=== PATIENT | female | born 1965 | race American Indian/Alaskan Native ===

== ENCOUNTER 2020-01-02 11:29 | Emergency (ER) | payer SELFPAY ==
--- NOTE | 2020-01-02 11:41 | Emergency Department Report ---
Blank Doc - Documentation Documentation: 54-year-old female that presents with abdominal pain with n/v. This initial assessment/diagnostic orders/clinical plan/treatment(s) is/are subject to change based on patient's health status, clinical progression and re- assessment by fellow clinical providers in the ED. Further treatment and workup at subsequent clinical providers discretion. Patient/guardians urged not to elope from the ED as their condition may be serious if not clinically assessed and managed. Initial orders include: 1- Patient sent to [facility] for further evaluation and treatment 2- labs 3- UA
[2020-01-02] MEDS ORDERED: MORPHINE 2 MG/1 ML INJ IV ONE (12:23)
[2020-01-02] MEDS ORDERED: ONDANSETRON 4 MG/2 ML INJ IV ONE (12:23)
[2020-01-02] MEDS ORDERED: PANTOPRAZOLE 40 MG INJ IV ONE (12:24)
[2020-01-02] MEDS ORDERED: ONDANSETRON 4 MG ODT TAB PO ONE (12:25)
--- NOTE | 2020-01-02 12:27 | XRay Report ---
XR abd series w cxr 1V INDICATION / CLINICAL INFORMATION: Abdominal pain. COMPARISON: None available. FINDINGS: TUBES / LINES: None. BOWEL GAS PATTERN: No significant abnormality. FREE AIR / EXTRALUMINAL GAS: None seen. LUNGS: Visualized lungs show no significant abnormality. HEART / MEDIASTINUM: No significant abnormality. IMPRESSION: 1. No acute abnormality. Signer Name: Kendall Power MD Signed: 01/02/2020 12:23 PM Workstation Name: [id number]
--- NOTE | 2020-01-02 12:31 | Emergency Department Report ---
ED Abdominal Pain HPI - General Chief Complaint: Abdominal Pain Stated Complaint: ABD PAIN/HYEGLYCMIA Time Seen by Provider: 01/02/20 11:40 Source: patient Mode of arrival: Stretcher Limitations: No Limitations - History of Present Illness Initial Comments: 54 yo F w/ hx of gastritis, chronic abdominal pain, presents to ED with abdominal pain x 1 week. She reports associated nausea and vomiting. Denies fever, diarrhea, constipation. Pt visiting from [place]. Has CT report with her from November [address] Abd/Pelvis. Patient reports last upper endoscopy showed gastritis. MD Complaint: abdominal pain -: week(s) (1) Location: diffuse Radiation: none Migration to: no migration Severity: moderate Quality: cramping, aching Consistency: constant Improves With: nothing Worsens With: nothing Associated Symptoms: nausea, vomiting. denies: diarrhea, fever, dysuria - Related Data Previous Rx's Medication Instructions Recorded Last Taken Type Dicyclomine [Bentyl] 20 mg PO QID PRN #20 tablet 01/02/20 Unknown Rx Nitrofurantoin [place]/M-Cryst 100 mg PO Q12HR #14 capsule 01/02/20 Unknown Rx [Macrobid CAP] Ondansetron [Zofran Odt] 4 mg PO Q8HR PRN #20 tab.rapdis 01/02/20 Unknown Rx traMADoL [Ultram] 50 mg PO Q6HR PRN #7 tablet 01/02/20 Unknown Rx Allergies Allergy/AdvReac Type Severity Reaction Status Date / Time No Known Allergies Allergy Unverified 01/02/20 11:33 ED Review of Systems ROS: Stated complaint: ABD PAIN/HYEGLYCMIA Other details as noted in HPI Comment: All other systems reviewed and negative Constitutional: denies: chills, fever Gastrointestinal: abdominal pain, nausea, vomiting. denies: diarrhea Genitourinary: denies: dysuria ED Past Medical Hx - Past Medical History Previous Medical History?: Yes Hx Hypertension: Yes Hx Diabetes: Yes - Social History Smoking Status: Never Smoker Substance Use Type: None - Medications Home Medications: Home Medications Medication Instructions Recorded Confirmed Last Taken Type Dicyclomine [Bentyl] 20 mg PO QID PRN #20 tablet 01/02/20 Unknown Rx Nitrofurantoin [place]/M-Cryst 100 mg PO Q12HR #14 capsule 01/02/20 Unknown Rx [Macrobid CAP] Ondansetron [Zofran Odt] 4 mg PO Q8HR PRN #20 tab.rapdis 01/02/20 Unknown Rx traMADoL [Ultram] 50 mg PO Q6HR PRN #7 tablet 01/02/20 Unknown Rx ED Physical Exam - General Limitations: No Limitations General appearance: alert, other (appears uncomfortable) - Head Head exam: Present: atraumatic, normocephalic - Eye Eye exam: Present: normal appearance, EOMI - ENT ENT exam: Present: mucous membranes moist - Neck Neck exam: Present: normal inspection - Respiratory Respiratory exam: Present: normal lung sounds bilaterally. Absent: respiratory distress - Cardiovascular Cardiovascular Exam: Present: normal rhythm, tachycardia - GI/Abdominal GI/Abdominal exam: Present: soft, tenderness (mild diffuse tenderness). Absent: distended - Extremities Exam Extremities exam: Present: normal inspection - Neurological Exam Neurological exam: Present: alert, oriented X3 - Psychiatric Psychiatric exam: Present: normal affect, normal mood - Skin Skin exam: Present: warm, dry, intact, normal color ED Course Vital Signs 01/02/20 01/02/20 01/02/20 11:41 12:28 12:31 Temperature 98.2 F Pulse Rate 110 H Respiratory 24 Rate Blood Pressure 120/71 O2 Sat by Pulse 98 98 96 Oximetry 01/02/20 01/02/20 01/02/20 12:39 12:45 13:01 Temperature Pulse Rate Respiratory 18 18 Rate Blood Pressure O2 Sat by Pulse 100 97 Oximetry 01/02/20 01/02/20 01/02/20 13:09 13:15 13:31 Temperature Pulse Rate Respiratory 18 Rate Blood Pressure O2 Sat by Pulse 96 100 Oximetry 01/02/20 01/02/20 01/02/20 13:45 14:01 14:15 Temperature Pulse Rate Respiratory Rate Blood Pressure O2 Sat by Pulse 100 98 98 Oximetry 01/02/20 14:31 Temperature Pulse Rate Respiratory Rate Blood Pressure 169/55 O2 Sat by Pulse 99 Oximetry ED Medical Decision Making - Lab Data Result diagrams: 01/02/20 14:45 01/02/20 14:45 - Radiology Data Radiology results: report reviewed, image reviewed - Medical Decision Making - acute on chronic abdominal pain - pt afebrile, labs unremarkable - no emesis here in ED - abd series normal - UA appears to be contaminated sample, but rx given for UTI - pt feels much better following morphine, zofran, protonix - outpt f/u advised - return precautions given - Differential Diagnosis chronic abd pain, uti, bowel obstruction Critical care attestation.: If time is entered above; I have spent that time in minutes in the direct care of this critically ill patient, excluding procedure time. ED Disposition Clinical Impression: Abdominal pain, UTI (urinary tract infection) Disposition: TO HOME OR SELFCARE Is pt being admited?: No Condition: Stable Instructions: Abdominal Pain (ED), Urinary Tract Infection in Women (ED) Prescriptions: Dicyclomine [Bentyl] 20 mg PO QID PRN #20 tablet PRN Reason: abdominal pain Nitrofurantoin [place]/M-Cryst [Macrobid CAP] 100 mg PO Q12HR #14 capsule traMADoL [Ultram] 50 mg PO Q6HR PRN #7 tablet PRN Reason: Pain Ondansetron [Zofran Odt] 4 mg PO Q8HR PRN #20 tab.rapdis PRN Reason: Vomiting Referrals: KRISTEN WOOD MD [Primary Care Provider] - 3-5 Days [facility] [Provider Group] - 3-5 Days Time of Disposition: 15:55
[2020-01-02 14:35] LABS: Bacteria,Urine 2+ /HPF (Negative); Bilirubin,Urine NEG (Negative); Blood,Urine SM (Negative); Color,Urine Yellow (Yellow); Urobilinogen,Urine < 2.0 mg/dL (<2.0)
[2020-01-02 14:36] LABS: WBC,Urine > 182.0 /HPF (0.0-6.0)
[2020-01-02 15:10] LABS: Basophils # (Auto) 0.1 K/mm3 (0.0-0.1); Basophils % (Auto) 1.3 % (0.0-1.8); Eosinophils # (Auto) 0.1 K/mm3 (0.0-0.4); Eosinophils % (Auto) 1.3 % (0.0-4.3); Hematocrit 36.9 % (30.3-42.9); Hemoglobin 12.3 gm/dl (10.1-14.3); Lymphocytes # (Auto) 1.6 K/mm3 (1.2-5.4); Lymphocytes % (Auto) 29.8 % (13.4-35.0); Mean Corpuscular HGB Conc 33 % (30-34); Mean Corpuscular Volume 87 fl (79-97); Monocytes # (Auto) 0.4 K/mm3 (0.0-0.8); Monocytes % (Auto) 7.7 % (0.0-7.3); Platelet Count 277 K/mm3 (140-440); Red Blood Count 4.24 M/mm3 (3.65-5.03); Red Cell Distribution Width 14.5 % (13.2-15.2)
[2020-01-02 15:31] LABS: Alanine Aminotransferase 8 units/L (7-56); BUN/Creatinine Ratio 16; Blood Urea Nitrogen 14 mg/dL (7-17); Calcium 9.9 mg/dL (8.4-10.2); Hemolysis Index 8
[2020-01-02 16:59] VITALS: BP 196/80
== END 2020-01-02 16:30 | disposition home or self-care (01) ==
LOC: ED 11:29
DX: N39.0 Urinary tract infection, site not specified (principal); R10.84 Generalized abdominal pain; I10 Essential (primary) hypertension; E11.9 Type 2 diabetes mellitus without complications; Z79.899 Other long term (current) drug therapy
CPT/HCPCS: 36415; 74022; 80053; 81001; 82962; 83690; 85025; 96374; 96375; 99284; C9113; J2270; Q0162

== ENCOUNTER 2020-01-22 15:14 | Emergency (ER) | payer SELFPAY ==
[2020-01-22 15:42] LABS: Basophils # (Auto) 0.1 K/mm3 (0.0-0.1); Basophils % (Auto) 0.9 % (0.0-1.8); Eosinophils # (Auto) 0.1 K/mm3 (0.0-0.4); Eosinophils % (Auto) 1.6 % (0.0-4.3); Hematocrit 36.7 % (30.3-42.9); Hemoglobin 12.4 gm/dl (10.1-14.3); Lymphocytes # (Auto) 1.4 K/mm3 (1.2-5.4); Lymphocytes % (Auto) 25.4 % (13.4-35.0); Mean Corpuscular HGB Conc 34 % (30-34); Mean Corpuscular Volume 86 fl (79-97); Monocytes # (Auto) 0.4 K/mm3 (0.0-0.8); Platelet Count 306 K/mm3 (140-440); Red Blood Count 4.25 M/mm3 (3.65-5.03); Red Cell Distribution Width 14.3 % (13.2-15.2)
[2020-01-22 16:02] LABS: Alanine Aminotransferase 9 units/L (7-56); Albumin 4.1 g/dL (3.9-5); BUN/Creatinine Ratio 28; Blood Urea Nitrogen 22 mg/dL (7-17); Calcium 10.2 mg/dL (8.4-10.2); Hemolysis Index 11
[2020-01-22] MEDS ORDERED: fentaNYL 100 MCG/2 ML INJ IV ONE (16:15)
[2020-01-22] MEDS ORDERED: METOCLOPRAMIDE 10 MG/2 ML INJ IV ONE (16:16)
[2020-01-22] MEDS ORDERED: diphenhydrAMINE 50 MG/ML VIAL IV ONE (16:16)
[2020-01-22] MEDS ORDERED: METOCLOPRAMIDE 10 MG/2 ML INJ ONE (16:18)
[2020-01-22] MEDS ORDERED: diphenhydrAMINE 50 MG/ML VIAL ONE (16:18)
[2020-01-22] MEDS ORDERED: SODIUM CHLORIDE 0.9% 1000 ML 1,000 ML IV ONE ×2 (16:20→19:49)
--- NOTE | 2020-01-22 16:26 | Emergency Department Report ---
HPI - General Chief Complaint: Abdominal Pain Time Seen by Provider: 01/22/20 16:11 - HPI HPI: Room 4 The patient is a 55-year-old female present with a chief complaint of abdominal pain. The patient states she has been suffering from intermittent abdominal pain since 1996 but has not yet been given a diagnosis. Patient states she has had extensive work-up including EGD which have not revealed results. Patient is uncertain if she has been told she may have gastroparesis. The patient states her most recent episode began 2 days ago with a constant pain in the midepigastric region associated with nausea and vomiting. Patient is unable to describe the quality of her pain and states it does not radiate. Patient denies diarrhea. The patient states her last bowel movement occurred this morning and was hard. Patient denies history of fever or cough. Patient denies any known sick contacts. The patient gives her pain a score of 10/10 ED Past Medical Hx - Past Medical History Previous Medical History?: Yes Hx Hypertension: Yes Hx Diabetes: Yes - Surgical History Past Surgical History?: No - Family History Family history: no significant - Social History Smoking Status: Never Smoker Substance Use Type: None (Denies illicit drug use) - Medications Home Medications: Home Medications Medication Instructions Recorded Confirmed Last Taken Type Dicyclomine [Bentyl] 20 mg PO QID PRN #20 tablet 01/02/20 Unknown Rx Nitrofurantoin [place]/M-Cryst 100 mg PO Q12HR #14 capsule 01/02/20 Unknown Rx [Macrobid CAP] Ondansetron [Zofran Odt] 4 mg PO Q8HR PRN #20 tab.rapdis 01/02/20 Unknown Rx traMADoL [Ultram] 50 mg PO Q6HR PRN #7 tablet 01/02/20 Unknown Rx HYDROcodone/APAP 5-325 [[place] 1 each PO Q6HR PRN #10 tablet 01/22/20 Unknown Rx 5/325] Metoclopramide [Reglan] 10 mg PO QID #30 tab 01/22/20 Unknown Rx ED Review of Systems ROS: Stated complaint: STOMACH PAIN Other details as noted in HPI Constitutional: denies: fever Eyes: denies: eye pain ENT: denies: throat pain Respiratory: no symptoms reported Cardiovascular: denies: chest pain Endocrine: no symptoms reported Gastrointestinal: abdominal pain, nausea, vomiting. denies: diarrhea Genitourinary: denies: dysuria Musculoskeletal: denies: back pain Neurological: denies: headache Physical Exam - Physical Exam Vital Signs: Vital Signs 01/22/20 01/22/20 01/22/20 15:17 15:36 15:45 Temperature 98.6 F Pulse Rate 109 H 107 H Respiratory 20 19 Rate Blood Pressure 179/84 O2 Sat by Pulse 100 100 100 Oximetry 01/22/20 16:01 Temperature Pulse Rate 113 H Respiratory 22 Rate Blood Pressure 134/114 O2 Sat by Pulse 99 Oximetry Physical Exam: GENERAL: The patient is well-developed well-nourished female lying on stretcher appearing to be in moderate discomfort. [] HEENT: Normocephalic. Atraumatic. Extraocular motions are intact. NECK: Supple. No meningitic signs are noted. Right EJ IV in place CHEST/LUNGS: Clear to auscultation. There is no respiratory distress noted. HEART/CARDIOVASCULAR: Regular. There is no tachycardia. There is no gallop rub or murmur. ABDOMEN: Abdomen is soft, nontender. Patient has normal bowel sounds. There is no abdominal distention. Patient is abdomen is nontender but she points to the epigastric region as a source of her pain SKIN: There is no rash. There is no edema. There is no diaphoresis. NEURO: The patient is awake, alert, and oriented. The patient is cooperative. The patient has normal speech MUSCULOSKELETAL: There is no evidence of acute injury. ED Course Vital Signs 01/22/20 01/22/20 01/22/20 15:17 15:36 15:45 Temperature 98.6 F Pulse Rate 109 H 107 H Respiratory 20 19 Rate Blood Pressure 179/84 O2 Sat by Pulse 100 100 100 Oximetry 01/22/20 16:01 Temperature Pulse Rate 113 H Respiratory 22 Rate Blood Pressure 134/114 O2 Sat by Pulse 99 Oximetry ED Medical Decision Making - Lab Data Result diagrams: 01/22/20 15:28 01/22/20 15:28 Laboratory Tests 01/22/20 01/22/20 01/22/20 15:28 15:28 15:28 WBC 5.5 RBC 4.25 Hgb 12.4 Hct 36.7 MCV 86 MCH 29 MCHC 34 RDW 14.3 Plt Count 306 Lymph % (Auto) 25.4 [place] % (Auto) 7.0 Eos % (Auto) 1.6 Baso % (Auto) 0.9 Lymph # 1.4 [place] # 0.4 Eos # 0.1 Baso # 0.1 Seg Neutrophils % 65.1 Seg Neutrophils # 3.6 Sodium 137 Potassium 4.6 Chloride 97.5 L Carbon Dioxide 22 Anion Gap 22 BUN 22 H Creatinine 0.8 Estimated GFR > 60 BUN/Creatinine Ratio 28 Glucose 189 H Calcium 10.2 Total Bilirubin 0.30 AST 18 ALT 9 Alkaline Phosphatase 117 Total Creatine Kinase 148 H CK-MB (CK-2) 2.4 CK-MB (CK-2) Rel Index 1.6 Troponin T < 0.010 Total Protein 8.3 H Albumin 4.1 Albumin/Globulin Ratio 1.0 Lipase 24 - EKG Data -: EKG Interpreted by Fl EKG shows normal: sinus rhythm Rate: tachycardia (102 bpm) - EKG Data When compared to previous EKG there are: previous EKG unavailable Interpretation: other (No ischemic changes seen) - Radiology Data Radiology results: report reviewed (CT abdomen pelvis), image reviewed (CT abdomen pelvis) [place] [address] Cat Scan Report Signed Patient: DOM GAMEZ MR#: [id number] : 1965 Acct:[id number] Age/Sex: 55 / F ADM Date: 01/22/20 Loc: ED Attending Dr: Ordering Physician: MARISELA CHAPARRO MD Date of Service: 01/22/20 Procedure(s): CT abdomen pelvis w con Accession Number(s): [id number] cc: MARISELA CHAPARRO MD CT ABDOMEN AND PELVIS WITH IV CONTRAST INDICATION: Epigastric pain for 4 days TECHNIQUE: Following the administration of intravenous contrast, multiple axial CT images of the abdomen and pelvis were acquired. Sagittal and coronal reformats were obtained. All CT performed at this facility utilize dose reduction techniques including automated exposure control, iterative reconstruction and weight based dosing when appropriate to reduce patient radiation dose to as low as reasonably achievable. COMPARISON: None FINDINGS: Limited imaging of the bilateral lung bases demonstrates no evidence of acute abnormality. Abdomen: The liver, spleen, pancreas, bilateral adrenal glands and bilateral kidneys show no evidence of acute abnormality there is marked atherosclerotic vascular calcification of the proximal mesenteric vessels. There is no evidence of bowel obstruction or free fluid. The appendix is visualized and appears normal. Pelvis: No free fluid is seen within the pelvis. The urinary bladder appears normal. There is dense atherosclerotic calcification of the internal and external iliac vessels. Bones and Soft Tissues: Evaluation of bony structures demonstrates mild multilevel degenerative change of the thoracolumbar spine. Evaluation of soft tissue structures demonstrates soft tissue stranding within both flank soft tissues that may be from previous medication injection. IMPRESSION: 1. No CT evidence of acute inflammatory or obstructive process within the abdomen or pelvis. 2. Dense atherosclerotic calcification of the abdominopelvic vasculature. Signer Name: Maile Edmonds MD Signed: 01/22/2020 6:59 PM Workstation Name: [id number] Transcribed By: EB Dictated By: Maile Edmonds MD Electronically Authenticated By: Maile Edmonds MD Signed Date/Time: 01/22/201858 DD/ 50 TD/TT: - Differential Diagnosis Gastroparesis, pancreatitis, peptic ulcer disease, gastritis, PSBO Critical care attestation.: If time is entered above; I have spent that time in minutes in the direct care of this critically ill patient, excluding procedure time. ED Disposition Clinical Impression: Acute abdominal pain Disposition: DC-01 TO HOME OR SELFCARE Is pt being admited?: No Does the pt Need Aspirin: No Condition: Stable Instructions: Abdominal Pain (ED) Additional Instructions: Return to the emergency department should you develop worsening symptoms, inability to tolerate food or liquids, high fever or any other concerns Prescriptions: HYDROcodone/APAP 5-325 [[place] 5/325] 1 each PO Q6HR PRN #10 tablet PRN Reason: Pain Metoclopramide [Reglan] 10 mg PO QID #30 tab Referrals: PRIMARY MD LAWRENCE [Primary Care Provider] - 3-5 Days HANNAH JACOME MD [Staff Physician] - 3-5 Days (Dr. Jacome is a gastroen terologist. Please follow-up with him for further evaluation)
[2020-01-22 16:46] LABS: Creatine Kinase MB 2.4 ng/mL (0.0-4.0)
[2020-01-22] MEDS ORDERED: ONDANSETRON 4 MG/2 ML INJ IV ONE (18:00)
--- NOTE | 2020-01-22 19:03 | Cat Scan Report ---
CT ABDOMEN AND PELVIS WITH IV CONTRAST INDICATION: Epigastric pain for 4 days TECHNIQUE: Following the administration of intravenous contrast, multiple axial CT images of the abdo men and pelvis were acquired. Sagittal and coronal reformats were obtained. All CT performed at this facility utilize dose reduction techniques including automated exposure control, iterative reconstru ction and weight based dosing when appropriate to reduce patient radiation dose to as low as reasonab ly achievable. COMPARISON: None FINDINGS: Limited imaging of the bilateral lung bases demonstrates no evidence of acute abnormality. Abdomen: The liver, spleen, pancreas, bilateral adrenal glands and bilateral kidneys show no evidence of acute abnormality there is marked atherosclerotic vascular calcification of the proximal mesenter ic vessels. There is no evidence of bowel obstruction or free fluid. The appendix is visualized and a ppears normal. Pelvis: No free fluid is seen within the pelvis. The urinary bladder appears normal. There is dense a therosclerotic calcification of the internal and external iliac vessels. Bones and Soft Tissues: Evaluation of bony structures demonstrates mild multilevel degenerative ferguson e of the thoracolumbar spine. Evaluation of soft tissue structures demonstrates soft tissue stranding within both flank soft tissues that may be from previous medication injection. IMPRESSION: 1. No CT evidence of acute inflammatory or obstructive process within the abdomen or pelvis. 2. Dense atherosclerotic calcification of the abdominopelvic vasculature. Signer Name: Maile Edmonds MD Signed: 01/22/2020 6:59 PM Workstation Name: [id number]
[2020-01-22] MEDS ORDERED: PROMETHAZINE 25 MG TAB PO ONE (20:06)
[2020-01-22 20:15] LABS: Bacteria,Urine 1+ /HPF (Negative); Bilirubin,Urine NEG (Negative); Blood,Urine SM (Negative); Color,Urine Yellow (Yellow); Mucus,Urine FEW /HPF; Urobilinogen,Urine < 2.0 mg/dL (<2.0)
[2020-01-22 21:59] VITALS: BP 169/89
== END 2020-01-22 21:58 | disposition home or self-care (01) ==
LOC: ED 15:14
DX: R10.9 Unspecified abdominal pain (principal); I10 Essential (primary) hypertension; E11.9 Type 2 diabetes mellitus without complications; Z79.899 Other long term (current) drug therapy
CPT/HCPCS: 36415; 74177; 80053; 81001; 82550; 82553; 83690; 84484; 85025; 93005; 93010; 96361; 96374; 96375; 99284; J1200; J2405; J2765; J3010; J7030; Q0169; Q9967

== ENCOUNTER 2020-01-31 17:43 | Emergency (ER) | payer SELFPAY ==
[2020-01-31 18:03] VITALS: BP 153/64
--- NOTE | 2020-01-31 18:54 | Event Note ---
ED Screening Note ED Screening Note: to er with stomach pain- diffuse difficulty urinating "I have to push." No fever or chills. It "smells funny down there" PMH HTN DM Rx chris for bp insulin pcp ? name did not see GI MD with referral given prior This initial assessment/diagnostic orders/clinical plan/treatment(s) is/are subject to change based on patients health status, clinical progression and re- assessment by fellow clinical providers in the ED. Further treatment and workup at subsequent clinical providers discretion. Patient/guardian urged not to elope from the ED as their condition may be serious if not clinically assessed and managed. Initial orders include: ua ro uti basic labs given DM and higher risk for complications from simple UTI reeval in [facility]
[2020-01-31] MEDS ORDERED: LIDOCAINE VISCOUS 2% 15 ML ORAL LIQD PO ONE (18:56)
[2020-01-31] MEDS ORDERED: FAMOTIDINE 20 MG TAB PO ONE (18:56)
[2020-01-31] MEDS ORDERED: ALUM-MAG HYDROXIDE-SIMETHICONE 200-200-20MG/5ML ORAL LIQD 30 ML PO ONE (18:56)
[2020-01-31 19:23] LABS: Basophils # (Auto) 0.1 K/mm3 (0.0-0.1); Eosinophils # (Auto) 0.1 K/mm3 (0.0-0.4); Eosinophils % (Auto) 2.6 % (0.0-4.3); Hematocrit 35.8 % (30.3-42.9); Hemoglobin 11.7 gm/dl (10.1-14.3); Lymphocytes # (Auto) 1.9 K/mm3 (1.2-5.4); Lymphocytes % (Auto) 35.1 % (13.4-35.0); Mean Corpuscular HGB Conc 33 % (30-34); Mean Corpuscular Volume 89 fl (79-97); Monocytes # (Auto) 0.5 K/mm3 (0.0-0.8); Monocytes % (Auto) 8.5 % (0.0-7.3); Platelet Count 268 K/mm3 (140-440); Red Blood Count 4.04 M/mm3 (3.65-5.03); Red Cell Distribution Width 14.6 % (13.2-15.2)
[2020-01-31 19:43] LABS: BUN/Creatinine Ratio 25; Blood Urea Nitrogen 20 mg/dL (7-17); Calcium 9.7 mg/dL (8.4-10.2); Hemolysis Index 12
[2020-01-31] MEDS ORDERED: SODIUM CHLORIDE 0.9% 1000 ML 1,000 ML IV ONE (19:48)
--- NOTE | 2020-01-31 20:39 | XRay Report ---
ABDOMEN 1 VIEW(S) INDICATION / CLINICAL INFORMATION: Abdominal pain and constipation. COMPARISON: 01/02/20. FINDINGS: TUBES / LINES: None. BOWEL GAS PATTERN: There is a moderate amount of stool throughout the colon. I see no evidence of bow el obstruction or mass effect. FREE AIR / EXTRALUMINAL GAS: None seen. ADDITIONAL FINDINGS: Atherosclerotic calcifications are noted. There is mild to moderate lower lumbar spondylosis. IMPRESSION: No acute abnormality. Signer Name: Frantz Patterson MD Signed: 01/31/2020 8:35 PM Workstation Name: [email or web address]
[2020-01-31 20:47] LABS: Bacteria,Urine 4+ /HPF (Negative); Bilirubin,Urine NEG (Negative); Blood,Urine SM (Negative); Color,Urine Yellow (Yellow); Mucus,Urine 1+ /HPF; Urobilinogen,Urine < 2.0 mg/dL (<2.0)
--- NOTE | 2020-01-31 20:48 | Emergency Department Report ---
ED Abdominal Pain HPI - General Chief Complaint: Abdominal Pain Stated Complaint: PAIN IN CHEST Time Seen by Provider: 01/31/20 19:41 Source: patient Mode of arrival: Wheelchair Limitations: No Limitations - History of Present Illness Initial Comments: Ms. Hart is a 55-year-old female with hx of chronic abdominal pain, DMII, HTN, Bilat LE amputee, who presents for complaint of abdominal pain. 5/10 aching exacerbated by nothing, relived by nothing, she denies n/v. Pt does endorse intermittent abdominal pain since 1996. Patient states she has had extensive work-up including EGD which have not revealed results. The patient states her most recent episode began 2 days ago with constipation. Last bm yesterday described as small rabbit pellets. Patient denies diarrhea. Patient denies fever or cough. Patient denies any known sick contacts. MD Complaint: abdominal pain Onset/Timin -: days(s) Location: LLQ, RLQ Radiation: LLQ Migration to: LLQ Severity: moderate Severity scale (0 -10): 4 Quality: cramping, aching Consistency: constant Improves With: nothing Worsens With: nothing Associated Symptoms: constipation. denies: nausea, vomiting, diarrhea, fever, chills, dysuria, hematemesis, hematochezia, melena, anorexia, syncope - Related Data LMP (females 10-50): other (s/p hanna) Previous Rx's Medication Instructions Recorded Last Taken Type Dicyclomine [Bentyl] 20 mg PO QID PRN #20 tablet 01/02/20 Unknown Rx Nitrofurantoin [place]/M-Cryst 100 mg PO Q12HR #14 capsule 01/02/20 Unknown Rx [Macrobid CAP] Ondansetron [Zofran Odt] 4 mg PO Q8HR PRN #20 tab.rapdis 01/02/20 Unknown Rx traMADoL [Ultram] 50 mg PO Q6HR PRN #7 tablet 01/02/20 Unknown Rx HYDROcodone/APAP 5-325 [[place] 1 each PO Q6HR PRN #10 tablet 01/22/20 Unknown Rx 5/325] Metoclopramide [Reglan] 10 mg PO QID #30 tab 01/22/20 Unknown Rx Nitrofurantoin [place]/M-Cryst 100 mg PO BID 7 Days #14 capsule 01/31/20 Unknown Rx [Macrobid CAP] bisacodyL [Dulcolax suppos] 10 mg OR QDAY PRN #5 supp.rect 01/31/20 Unknown Rx polyethylene glycoL 3350 [Miralax 17 gm PO BID PRN #14 packet 01/31/20 Unknown Rx 3350] Allergies Allergy/AdvReac Type Severity Reaction Status Date / Time No Known Allergies Allergy Unverified 01/02/20 11:33 ED Review of Systems ROS: Stated complaint: PAIN IN CHEST Other details as noted in HPI Constitutional: denies: chills, fever Eyes: denies: eye pain, eye discharge, vision change ENT: denies: ear pain, throat pain Respiratory: denies: cough, shortness of breath, wheezing Cardiovascular: denies: chest pain, palpitations Endocrine: no symptoms reported Gastrointestinal: abdominal pain, constipation. denies: nausea, vomiting, diarrhea, melena Genitourinary: frequency. denies: urgency, dysuria, hematuria, discharge Musculoskeletal: denies: back pain, joint swelling, arthralgia Skin: denies: rash, lesions Neurological: denies: headache, weakness, paresthesias, vertigo Psychiatric: anxiety. denies: depression Hematological/Lymphatic: denies: easy bleeding, easy bruising ED Past Medical Hx - Past Medical History Previous Medical History?: Yes Hx Hypertension: Yes Hx Diabetes: Yes - Surgical History Past Surgical History?: Yes Additional Surgical History: Bilatteral BKA. Hysterectomy - Social History Smoking Status: Never Smoker - Medications Home Medications: Home Medications Medication Instructions Recorded Confirmed Last Taken Type Dicyclomine [Bentyl] 20 mg PO QID PRN #20 tablet 01/02/20 Unknown Rx Nitrofurantoin [place]/M-Cryst 100 mg PO Q12HR #14 capsule 01/02/20 Unknown Rx [Macrobid CAP] Ondansetron [Zofran Odt] 4 mg PO Q8HR PRN #20 tab.rapdis 01/02/20 Unknown Rx traMADoL [Ultram] 50 mg PO Q6HR PRN #7 tablet 01/02/20 Unknown Rx HYDROcodone/APAP 5-325 [[place] 1 each PO Q6HR PRN #10 tablet 01/22/20 Unknown Rx 5/325] Metoclopramide [Reglan] 10 mg PO QID #30 tab 01/22/20 Unknown Rx Nitrofurantoin [place]/M-Cryst 100 mg PO BID 7 Days #14 capsule 01/31/20 Unknown Rx [Macrobid CAP] bisacodyL [Dulcolax suppos] 10 mg OR QDAY PRN #5 supp.rect 01/31/20 Unknown Rx polyethylene glycoL 3350 [Miralax 17 gm PO BID PRN #14 packet 01/31/20 Unknown Rx 3350] ED Physical Exam - General Limitations: No Limitations General appearance: alert, in no apparent distress - Head Head exam: Present: atraumatic, normocephalic - Eye Eye exam: Present: normal appearance, PERRL, EOMI Pupils: Present: normal accommodation - ENT ENT exam: Present: mucous membranes moist - Neck Neck exam: Present: normal inspection, full ROM. Absent: tenderness - Respiratory Respiratory exam: Present: normal lung sounds bilaterally. Absent: respiratory distress, wheezes, stridor, chest wall tenderness - Cardiovascular Cardiovascular Exam: Present: regular rate, normal rhythm, normal heart sounds. Absent: systolic murmur, diastolic murmur, rubs, gallop - GI/Abdominal GI/Abdominal exam: Present: tenderness (LLQ), normal bowel sounds. Absent: soft, distended, guarding, rebound, rigid, mass, bruit, hernia - Rectal Rectal exam: Present: deferred - Extremities Exam Extremities exam: Present: normal inspection, full ROM. Absent: tenderness - Back Exam Back exam: Present: normal inspection, full ROM. Absent: tenderness, CVA tenderness (R), CVA tenderness (L), paraspinal tenderness, vertebral tenderness - Neurological Exam Neurological exam: Present: alert, oriented X3, CN II-XII intact, reflexes normal - Psychiatric Psychiatric exam: Present: normal affect, normal mood - Skin Skin exam: Present: warm, dry, intact, normal color. 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 COMPARISON: 01/02/20. FINDINGS: TUBES / LINES: None. BOWEL GAS PATTERN: There is a moderate amount of stool throughout the colon. I see no evidence of bowel obstruction or mass effect. FREE AIR / EXTRALUMINAL GAS: None seen. ADDITIONAL FINDINGS: Atherosclerotic calcifications are noted. There is mild to moderate lower lumbar spondylosis. IMPRESSION: No acute abnormality. Signer Name: Frantz Patterson MD Signed: 01/31/2020 7:35 PM Workstation Name: [email or web address] - Medical Decision Making this is Constipation, UTI, ct abd dated 01/26/2020 - normal findings, no renal stones, no heaptic stones, no obstruction, KUB today no obstruction, moderate stoo throughout, pt previously tx'd with macrobid for uti, urine today: moderate luek, wbc, plan tx with rocephin 1gm IM, x 1 , diflucan po, dc to home with rx for miralax po and duclolax supp. pt will hydrate to 1 gallon water p er day for nexct 3-4 days, take medications as prescribed including DMII medications , pt verbalized agreement and understanding of discharge plan. Critical care attestation.: If time is entered above; I have spent that time in minutes in the direct care of this critically ill patient, excluding procedure time. ED Disposition Clinical Impression: Constipation Qualifiers: Constipation type: unspecified constipation type Qualified Code(s): K59.00 - Constipation, unspecified UTI (urinary tract infection) Qualifiers: Urinary tract infection type: acute cystitis Hematuria presence: without hematuria Qualified Code(s): N30.00 - Acute cystitis without hematuria Disposition: DC-01 TO HOME OR SELFCARE Is pt being admited?: No Does the pt Need Aspirin: No Condition: Stable Instructions: High Fiber Diet (ED), Constipation (ED), Urinary Tract Infection in Women (ED) Prescriptions: bisacodyL [Dulcolax suppos] 10 mg OR QDAY PRN #5 supp.rect PRN Reason: Constipation Nitrofurantoin [place]/M-Cryst [Macrobid CAP] 100 mg PO BID 7 Days #14 capsule polyethylene glycoL 3350 [Miralax 3350] 17 gm PO BID PRN #14 packet PRN Reason: Constipation Referrals: SEDRICK BALLARD MD [Staff Physician] - 3-5 Days Forms: Work/School Release Form(ED) Time of Disposition: 21:32
[2020-01-31] MEDS ORDERED: LIDOCAINE-MPF (1%) 10 MG/1 ML VIAL 5 ML INFILTRATI ONE ×2 (21:10→21:58)
[2020-01-31] MEDS ORDERED: FLUCONAZOLE 200 MG TAB PO ONE (22:00)
== END 2020-01-31 22:54 | disposition home or self-care (01) ==
LOC: ED 17:43
DX: N39.0 Urinary tract infection, site not specified (principal); K59.00 Constipation, unspecified; E11.9 Type 2 diabetes mellitus without complications; I10 Essential (primary) hypertension; Z90.710 Acquired absence of both cervix and uterus; Z79.899 Other long term (current) drug therapy; Z98.890 Other specified postprocedural states
CPT/HCPCS: 36415; 74018; 80048; 81001; 85025; 87086; 96372; 99284; J0696; J7030; 87076; 87186